=== PATIENT | female | born 2005 | race American Indian/Alaskan Native ===

== ENCOUNTER 2024-08-30 13:40 | Inpatient (IN) | payer OTHER ==
[~2024-08-30] VITALS: Ht 162.6 cm; Wt 44.5 kg
[~2024-08-30 13:40] MED LIST: OLANZapine ODT 5 MG Tab PO SCH
[2024-08-30] MEDS ORDERED: Acetaminophen650 M1 PO (21:47)
[2024-08-30 21:49] VITALS: BP 124/77
[2024-08-30] MEDS ORDERED: OLANZAPINE ODT512 PO (21:51)
[2024-08-30] MEDS ORDERED: EUTHYROX50 MCG PO (21:55)
[2024-08-30] MEDS ORDERED: BANOPHEN25 MG PO (21:57)
[2024-08-30] MEDS ORDERED: IBU600 M1 PO (21:58)
[2024-08-30] MEDS ORDERED: EPIPEN0.3 MG/0.3 IM (22:03)
--- NOTE | 2024-08-30 22:16 | NUR ---
ADMISSION NOTE: PATIENT ARRIVED BY SECURE TRANSPORT FROM [facility] AT 2049. SHE WAS SHACKLED IN HANDCUFFS AND CHAINS ON WRISTS AND ANKLES. SECURE TRANSPORT UNLOCKED THE SHACKLES AND TOOK THEM WITH HIM. PATIENT WAS PLEASANT AND COOPERATIVE WITH ADMISSION PROCESS. SHE WAS WEIGHED AND SKIN CHECK/LICE CHECK DONE WITH SHELLY RN AND SOPHIA HERMAN. SHE ATE A MEAL WHILE ADMISSION INTERVIEW TOOK PLACE IN VISITATION ROOM. SHE WAS PLEASANT AND COOPERATIVE, BUT DID NOT HAVE INSIGHT INTO HER MENTAL ILLNESS STATUS, BELIEVING SHE IS DIAGNOSED WITH "ANXIETY". HER HOME MEDICATIONS WERE CONFIRMED, AND PLACED IN LOCK BOX. SHE COMPLETED ADMISSION PROCESS, AND IVETH GAO GAVE HER A TOUR OF THE UNIT AND SHOWED HER TO HER ROOM. SHE WENT TO BED AND IS LYING IN BED AT THIS TIME, RESTING QUIETLY. CONTINUING TO MONITOR FOR SAFETY WITH Q15 MINUTE CHECKS.
[2024-08-30] MEDS ORDERED: EpiNEPhrine 1 MG/1 ML 1ML Vial IM PRN (23:15)
[2024-08-30] MEDS ORDERED: Ibuprofen 600 MG Tab PO PRN (23:15)
[2024-08-30] MEDS ORDERED: Haloperidol Lactate Inj. 5 MG/ML Injection IM PRN (23:20)
[2024-08-30] MEDS ORDERED: OLANZapine ODT 10 MG Tab MM PRN (23:20)
[2024-08-30] MEDS ORDERED: Acetaminophen 325 MG TABLET PO PRN ×2 (23:20→23:25)
[2024-08-30] MEDS ORDERED: Haloperidol 5 MG Tab PO PRN (23:20)
[2024-08-30] MEDS ORDERED: DiphenhydrAMINE HCL 25 MG Cap PO PRN (23:20)
[2024-08-30] MEDS ORDERED: Aluminum Hydroxide 320MG/5ML 473 ML PO PRN (23:25)
[2024-08-30] MEDS ORDERED: DiphenhydrAMINE HCl 50 MG Cap PO PRN (23:25)
[2024-08-30] MEDS ORDERED: Calcium Carbonate 500 MG Tab Chew PO PRN (23:25)
[2024-08-30] MEDS ORDERED: Ondansetron 4 MG SoluTab MM PRN (23:25)
[2024-08-30] MEDS ORDERED: OLANZapine ODT 5 MG Tab PO SCH (23:30)
--- NOTE | 2024-08-31 00:19 | NUR ---
SHIFT SUMMARY (FROM ADMISSION AT 2049 TO 29): PLEASE SEE ADMISSION NOTE FOR THE ADMISSION PROCESS WITH THIS PATIENT. SHE WENT TO BED AFTER A TOUR OF THE UNIT, AND WAS NOTED TO BE RESTING QUIETLY WITH EYES CLOSED AND RESPIRATIONS CONFIRMED. SHE HAD NO S/SX SUICIDAL IDEATION OR SELF HARMING. CONTINUING TO MONITOR FOR SAFETY WITH Q15 MINUTE CHECKS.
[2024-08-31] MEDS ORDERED: DiphenhydrAMINE HCl 50 MG/ML 1ML Vial IM PRN (01:15)
[2024-08-31] MEDS ORDERED: LORazepam 1 MG Tab PO PRN (01:20)
[2024-08-31] MEDS ORDERED: Ibuprofen 600 MG Tab PO PRN (01:20)
[2024-08-31] MEDS ORDERED: HydrOXYzine Pamoate 25 MG Cap PO PRN (01:20)
[2024-08-31] MEDS ORDERED: LORazepam 2 MG/ML 1ML Injection IM PRN (01:25)
[2024-08-31] MEDS ORDERED: TraZODone HCl 50 MG Tab PO PRN (01:25)
[2024-08-31] MEDS ORDERED: Polyethylene Glycol 3350 17 gm PO PRN (01:25)
[2024-08-31] MEDS ORDERED: Melatonin 3 MG Tab PO PRN (01:25)
--- NOTE | 2024-08-31 04:53 | NUR ---
SHIFT SUMMARY REPORT TAKEN FROM [facility] AT 0030; NO ACUTE EVENTS SINCE THEN. PT SLEPT/RESTED QUIETLY T/O REST OF SHIFT.
[2024-08-31] MEDS ORDERED: Levothyroxine Sodium 0.05 MG Tab PO SCH (06:00)
[2024-08-31 08:24] VITALS: BP 129/73
[2024-08-31 08:36] LABS: Cholesterol 132 mg/dL (50-200); HDL Cholesterol 67 mg/dL (>39); LDL/HDL RATIO 0.9; Low Density Lipoprotein Chol 58 mg/dL (0-110); Triglycerides 37 mg/dL (30-140); Very Low Density Lipoprot Chol 7 mg/dL (6-28)
[2024-08-31] MEDS ORDERED: Multivitamins 1 Tab PO SCH (09:00)
--- NOTE | 2024-08-31 11:28 | NUR ---
IMPORTANT MENTAL HEALTH HOLD INFORMATION SW spoke via telephone with [facility], Josie Gates who recommends no further action on patient's mental health hold and allow the hold to run out. Day 5 is Saturday, September 02, 2024. Psychiatrist alerted and is in agreement Josie Gates telephone,
--- NOTE | 2024-08-31 17:27 | NUR ---
SHIFT SUMMARY PT A/O X4; PLEASANT AND COOPERATIVE WITH CARE. SHE DENIES ANY CURRENT SI, HI, OR HALLUCINATIONS. PT CAME TO U FROM [place]. PT HAS A HX OF AUSTISM SPECTRUM DISORDER. PT REPORTED THAT SHE CAME TO THE ED IN [place] DUE TO HAVING AN ALLERGIC REACTION TO [facility]. PT DOES NOT SEEM TO HAVE MUCH INSIGHT INTO THE REASON FOR HER STAY IN THE U. SHE PARTICIPATED IN ALL GROUPS AND MEALS THIS SHIFT. PT ENCOURAGED TO SHOWER BUT SHE DID NOT. PT NEEDS A LOT OF REDIRECTION TO COMPLETE PERSONAL HYGIENE.
[2024-08-31 20:22] VITALS: BP 140/81
--- NOTE | 2024-09-01 04:22 | NUR ---
SHIFT SUMMARY PT IN HER ROOM SITTING QUIETLY ON HER BED AT THE START OF MY SHIFT. PT DENIES ANY SI, HI, THOUGHTS OF SELF HARM OR ANY HALLUCINATIONS. PT IS VERY SOFT SPOKEN AND APPEARS TIMID. SHE WAS ENCOURAGED TO TAKE A SHOWER AND STATES THAT SHE ALREADY TOOK A SHOWER TODAY. SHE REPORTS THROBBING RIGHT ANKLE PAIN OF 10/10, AND RECEIVED PRN IBUPROFEN AND PAIN DECREASED TO 2/10. SHE WAS COMPLIANT WITH MEDICATIONS AND ALSO RECEIVED PRN TRAZODONE AND MELATONIN. SHE HAD EVENING SNACK AND WENT TO BED. SHE HAS APPEARED TO SLEEP THROUGHOUT THE NIGHT, WITH RESPIRATIONS CONFIRMED. Q15 MINUTE CHECKS TO CONTINUE PER UNIT PROTOCOL/PT SAFETY.
[2024-09-01 08:23] VITALS: BP 136/83
--- NOTE | 2024-09-01 09:28 | NUR ---
IMPORTANT MENTAL HEALTH HOLD INFORMATION Hard copy of General Judgement of Dismissal from [facility] placed in patient's chart
--- NOTE | 2024-09-01 11:05 | NUR ---
IMPORTANT HOSPITAL DISCHARGE INFORMATION Patient's father, Sean Brink at [phone] to picker/puller between [id number] on 09/02. Psychiatrist alerted and in agreement. RN wound care center consultant and welder gun notified
--- NOTE | 2024-09-01 16:41 | NUR ---
SHIFT SUMMARY PT A/O X4; PLEASANT AND COOPERATIVE WITH CARE. SHE DENIES SI, HI, HALLUCINATIONS. PT REPORTS THAT SHE IS SHY AND DOES NOT ALWAYS FEELS COMFORTABLE INTERACTING WITH PEERS, BUT SHE DOES ATTEND ALL GROUPS AND MEALS. PT TOOK A SHOWER THIS SHIFT WELL. PT TO DISCHARGE HOME WITH HER FATHER TOMORROW.
[2024-09-01 20:00] VITALS: BP 128/75
--- NOTE | 2024-09-02 04:26 | NUR ---
SHIFT SUMMARY PT PRESENT IN GROUP ROOM AT START OF SHIFT. SHE DENIES ANY SI, THOUGHTS OF SELF HARM OR HALLUCINATIONS. SHE REPORTS LOOKING FORWARD TO BEING DISCHARGED. SHE WAS COMPLIANT WITH MEDICATIONS, RECEIVED PRN TRAZODONE AND MELATONIN. SHE HAD EVENING SNACK AND WENT TO BED SHORTLY AFTER. PT HAS APPEARED TO SLEEP THROUGHOUT THE NIGHT, WITH RESPIRATIONS CONFIRMED. Q15 MINUTE CHECKS TO CONTINUE PER UNIT PROTOCOL/PT SAFETY.
[2024-09-02 08:28] VITALS: BP 122/76
--- NOTE | 2024-09-02 11:45 | NUR ---
IMPORTANT DISCHARGE INFORMATION PATIENT HAS FOLLOW UP WITH [facility]. THEY WILL CALL HER WITH DATE AND TIME. PATIENT'S FATHER (VERA) COMING TO GET HER TODAY BETWEEN 2-3 PHARMACY: [facility]
--- NOTE | 2024-09-02 13:04 | NUR ---
RX CALLED INTO [facility] @[id number]
--- NOTE | 2024-09-02 13:31 | NUR ---
DISCHARGE NOTE: PT DISCHARGED HOME. STATED UNDERSTANDING OF DISCHARGE INSTRUCTIONS AND DENIED QUESTIONS. RX CALLED TO [facility] BY [place]O HERMAN. PT AMBULATED OUT OF UNIT WITH DISCHARGE INSTURCTIONS AND BELONGINGS IN HAND. PT BELONGINGS RETURN TO BY BOB LAZARO.
== END 2024-09-02 13:22 | disposition home or self-care (01) | DRG 884 ==
LOC: BHU 13:40
PROVIDERS: ADMIT Psychiatry & Neurology Psychiatry
DX: F84.0 Autistic disorder (principal); F41.9 Anxiety disorder, unspecified; F79 Unspecified intellectual disabilities; F29 Unspecified psychosis not due to a substance or known physiological condition; E03.9 Hypothyroidism, unspecified; Z91.018 Allergy to other foods; Z91.048 Other nonmedicinal substance allergy status; Z79.899 Other long term (current) drug therapy; Z79.1 Long term (current) use of non-steroidal anti-inflammatories (NSAID); Z79.890 Hormone replacement therapy
CPT/HCPCS: 36415; 80061; 83036; A9270